=== PATIENT | female | born 1985 | race African-American/Black ===

== ENCOUNTER 2017-09-09 17:26 | Emergency (ER) | payer SELFPAY ==
[~2017-09-09] VITALS: Ht 175.3 cm; Wt 88.2 kg
[~2017-09-09 17:26] MED LIST: BENADRYL50 MG PO; LEVAQUIN750 MG PO; MOTRIN800 MG PO; MUCINEX DM ER1 EACH PO; NOHOMEMEDS; PERCOCET 5/31 TABLET PO; ZOFRAN ODT4 MG PO
[2017-09-09 18:34] LABS: BASOPHIL (%) 0.4 % (0-1); BASOPHIL COUNT 0.1 K/uL (0-0.1); EOSINOPHIL (%) 0.3 % (0-5); HEMOGLOBIN 14.4 G/DL (11.9-15.5); IMMATURE GRANULOCYTE (%) 0.4 % (0.0-0.7); LYMPHOCYTE (%) 29.3 % (15-42); MCH 31.2 PG (29.0-34.0); MCHC 33.5 G/DL (30.0-36.0); MCV 93.3 FL (83-99); MONOCYTE (%) 7.3 % (3-12); NEUTROPHIL (%) 62.3 % (45-76); NEUTROPHIL COUNT 8.5 K/uL (1.8-6.4); PLATELET COUNT 340 K/uL (156-360); RBC DIS.WIDTH-CV 15.8 % (11.8-14.6); RBC DIS.WIDTH-SD 54.2 % (39-53); RED BLOOD COUNT 4.61 M/uL (3.80-5.20); WHITE BLOOD COUNT 13.6 K/uL (4.1-10.2)
[2017-09-09 18:48] LABS: CHLORIDE 102 mEq/L (99-109); POTASSIUM 3.4 mEq/L (3.7-5.4); SODIUM 140 mEq/L (136-147)
[2017-09-09 18:50] LABS: GLUCOSE 100 mg/dL (70-99)
[2017-09-09 18:53] LABS: CREATININE 0.7 mg/dL (0.6-1.3); GFR ESTIMATE (CALCULATED) > 59 mL/min/
[2017-09-09 18:54] LABS: UREA NITROGEN (BUN) 4 mg/dL (9-23)
[2017-09-09 19:35] LABS: QUANTITATIVE HCG < 4.0 MIU/ML
[2017-09-09] MEDS ORDERED: BACTRIM,SEPT1 TABLET PO (21:29)
[2017-09-09 21:50] VITALS: BP 113/74
== END 2017-09-09 21:50 | disposition home or self-care (01) ==
LOC: EME 17:26 → RME 17:26
DX: L02.413 Cutaneous abscess of right upper limb (principal); L03.113 Cellulitis of right upper limb; F11.10 Opioid abuse, uncomplicated; F17.200 Nicotine dependence, unspecified, uncomplicated; Z88.6 Allergy status to analgesic agent
CPT/HCPCS: 73080; 80048; 83605; 84702; 85025; 87040; 87070; 87075; 87076; 87185; 87205; 99281; 99283